=== PATIENT | female | born 1950 | race Caucasian/White ===

== ENCOUNTER 2016-12-02 05:05 | Inpatient (IN) | payer OTHER, MEDICARE ==
[~2016-12-02 05:05] MED LIST: ACCUPRIL40 M1 PO; ASPIR 8181 M1 PO; CPAP; CYMBALTA60 M1 PO; FISH OIL PO; HYDROCHLOROTHIA25 M1 PO; KLONOPIN0.5 M1 PO; MULTI VITAMIN1 EAC2 PO; NORVASC5 M2 PO; OXYGEN; TRAVATAN Z5 M1 EACH EYE; VITAMIN D5000 UNI2 PO
--- NOTE | 2016-12-02 19:41 | NUR ---
VIRTUAL CARE NOTE: PT. IN THE CHAIR. STATES HAS A H/A. EDUCATION PROVIDED ON SIDE EFFECTS OF MORPHINE AND SOMETIMES ANETHESIA. ICE PACK OFFERED AND FLOOR STAFF PAGED. DENIES QUESTIONS WITH POST-PROCEEDURE AT THIS TIME. PRAISE GIVEN FOR AMBULATING WELL. ENCOURAGED TO CALL FOR FUTURE NEEDS. STATES VERBAL AGREEMENT.
[2016-12-03 04:39] LABS: BASO % 0.1 % (0-2); HCT-HEMATOCRIT 39.8 % (34.0-49.0); IMMATURE GRANULOCYTES ABSOLUTE 0.05 tho/cmm (0-0.03); IMMATURE GRANULOCYTES PERCENT 0.3 % (0-0.3); LYMPH % 17.1 % (20-45); LYMPH ABSOLUTE COUNT 2.6 tho/cmm (0.8-4.5); MCH (MEAN CORPUSCULAR HGB) 28.1 pg (28.0-32.0); MCHC MEAN CORPUSCULAR HGB CONC 32.7 % (32.0-36.0); MEAN PLATELET VOLUME 10.2 cmc (9.4-12.4); MONO % 5.9 % (0-12); MONOCYTE ABSOLUTE COUNT 0.9 tho/cmm (0.0-1.2); NEUTROPHIL ABSOLUTE COUNT 11.6 tho/cmm (1.6-8.0); NEUTROPHIL-AUTOMATED 11.6 tho/cmm (1.6-8.0); NEUTROPHILS % 76.6 % (40-80); PLATELET COUNT 351 tho/cmm (150-450); RED BLOOD COUNT 4.63 mil/cmm (4.00-5.20); RED CELL DISTRIBUTION WIDTH 13.7 % (12.4-16.4); WHITE BLOOD COUNT 15.1 tho/cmm (4.0-10.0)
[2016-12-03] MEDS ORDERED: HYCET ELIXIR PO (16:56)
[2016-12-03] MEDS ORDERED: ZOFRAN4 M2 PO (16:56)
== END 2016-12-03 18:03 | DRG 620 ==
LOC: SHSB 05:05 → ORW 07:58 → PACU 09:09 → 5WD 10:20
PROVIDERS: ADMIT Surgery
PROC: 0DB64Z3 Excision of Stomach, Percutaneous Endoscopic Approach, Vertical (ICD-10-PCS; principal; 2016-12-02)
PROC: 0BQS4ZZ (ICD-10-PCS; 2016-12-02)
PROC: 5A09357 Assistance with Respiratory Ventilation, Less than 24 Consecutive Hours, Continuous Positive Airway Pressure (ICD-10-PCS; 2016-12-02)
DX: E66.01 Morbid (severe) obesity due to excess calories (principal); I50.32 Chronic diastolic (congestive) heart failure; I11.0 Hypertensive heart disease with heart failure; E28.2 Polycystic ovarian syndrome; Z68.41 Body mass index [BMI] 40.0-44.9, adult; E78.00 Pure hypercholesterolemia, unspecified; G47.33 Obstructive sleep apnea (adult) (pediatric); M54.5 Low back pain; G89.29 Other chronic pain; K44.9 Diaphragmatic hernia without obstruction or gangrene; Z79.82 Long term (current) use of aspirin; E78.5 Hyperlipidemia, unspecified; Z87.891 Personal history of nicotine dependence; F32.9 Major depressive disorder, single episode, unspecified
CPT/HCPCS: J1335; J1650; J2270; J2405; J2765; J3010; J3480; J7030